=== PATIENT | female | born 1995 | race Caucasian/White ===

== ENCOUNTER 2018-06-06 22:17 | Emergency (ER) | payer OTHER ==
--- NOTE | 2018-06-06 22:33 | EDPHYS ---
Physician Documentation [facility] Name: Livia Bonilla Age: 22 yrs Sex: Female : 1995 Arrival Date: 06/06/2018 Time: 22:18 Bed 7 Private MD: ED Physician Gee Rider HPI: 06/06 23:00 This 22 yrs old Female presents to ER via Ambulatory with complaints of Sore pm1 Throat. 23:00 The patient presents with sore throat. The patient describes throat pain as constant, pm1 dry. Onset: The symptoms/episode began/occurred 1 week(s) ago. Severity of symptoms: in the emergency department the symptoms are actually worse. Modifying factors: The symptoms are alleviated by nothing, the symptoms are aggravated by nothing, Patient's oral intake status: good. Associated signs and symptoms: Pertinent positives: cough, sinus congestion and post nasal drainage, Pertinent negatives fever. The patient has not experienced similar symptoms in the past. The patient has not recently seen a physician, and does not have an established primary care provider. 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 - Social history:: Smoking status: Patient uses tobacco products, smokes one-half pack cigarettes per day. - Ebola Screening: : Patient denies exposure to infectious person Patient denies travel to an Ebola-affected area in the 21 days before illness onset. ROS: 23:00 Constitutional: Negative for fever, chills, and weight loss, Eyes: Negative for injury, pm1 pain, redness, and discharge. 23:00 Neck: Negative for injury, pain, and swelling, Cardiovascular: Negative for chest pain, palpitations, and edema, Respiratory: Negative for shortness of breath, cough, wheezing, and pleuritic chest pain, Abdomen/GI: Negative for abdominal pain, nausea, vomiting, diarrhea, and constipation, Back: Negative for injury and pain, MS/Extremity: Negative for injury and deformity, Skin: Negative for injury, rash, and discoloration, Neuro: Negative for headache, weakness, numbness, tingling, and seizure. 23:00 ENT: Positive for ear pain, sinus congestion, sinus pain, sore throat, Negative for drainage from ear(s). Exam: 23:00 Constitutional: This is a well developed, well nourished patient who is awake, alert, pm1 and in no acute distress. Head/Face: Normocephalic, atraumatic. Eyes: Pupils equal round and reactive to light, extra-ocular motions intact. Lids and lashes normal. Conjunctiva and sclera are non-icteric and not injected. Cornea within normal limits. Periorbital areas with no swelling, redness, or edema. 23:00 Neck: Trachea midline, no thyromegaly or masses palpated, and no cervical lymphadenopathy. Supple, full range of motion without nuchal rigidity, or vertebral point tenderness. No Meningismus. Chest/axilla: Normal chest wall appearance and motion. Nontender with no deformity. No lesions are appreciated. Cardiovascular: Regular rate and rhythm with a normal S1 and S2. No gallops, murmurs, or rubs. Normal PMI, no JVD. No pulse deficits. Respiratory: Lungs have equal breath sounds bilaterally, clear to auscultation and percussion. No rales, rhonchi or wheezes noted. No increased work of breathing, no retractions or nasal flaring. Abdomen/GI: Soft, non-tender, with normal bowel sounds. No distension or tympany. No guarding or rebound. No evidence of tenderness throughout. Back: No spinal tenderness. No costovertebral tenderness. Full range of motion. Skin: Warm, dry with normal turgor. Normal color with no rashes, no lesions, and no evidence of cellulitis. MS/ Extremity: Pulses equal, no cyanosis. Neurovascular intact. Full, normal range of motion. 23:00 Head/face: Sinus tenderness, that is moderate, is located over the right frontal sinus and left frontal sinus. 23:00 ENT: External ear(s): are unremarkable, Ear canal(s): are normal, TM's: are normal, Nose: is normal, Mouth: is normal, Posterior pharynx: no acute changes, Airway: normal, no evidence of obstruction, patent, Tonsils: are normal in appearance, no enlargement, no erythema, no exudate, no ulcerations, erythema, is not appreciated. Vital Signs: 22:30 BP 120 / 85; Pulse 89; Resp 16; Temp 99.2; Pulse Ox 99% on R/A; Weight 61.23 kg; Height aa1 5 ft. 0 in. (152.40 cm); Pain 6/10; 22:30 Body Mass Index 26.37 (61.23 kg, 152.40 cm) aa1 MDM: 22:25 Patient medically screened. pm1 22:30 Data reviewed: vital signs. pm1 22:31 Counseling: I had a detailed discussion with the patient and/or guardian regarding: the pm1 historical points, exam findings, and any diagnostic results supporting the discharge/admit diagnosis, the need for outpatient follow up, to return to the emergency department if symptoms worsen or persist or if there are any questions or concerns that arise at home. Administered Medications: No medications were administered Disposition: 06/07 04:17 Co-signature as Attending Physician, Gee Rider MD. rn Disposition: 06/06/18 22:32 Discharged to Home. Impression: Acute sinusitis. - Condition is Stable. - Discharge Instructions: Sinusitis, Adult. - Prescriptions for Zyrtec- D 5-120 mg Oral Tablet Sustained Release 12 hr - take 1 tablet by ORAL route every 12 hours As needed; 20 tablet. Zithromax 500 mg Oral Tablet - take 1 tablet by ORAL route once daily for 3 days; 3 tablet. - Medication Reconciliation Form, Thank You Letter, Prescription Opioid Use form. - Follow up: Emergency Department; When: As needed; Reason: Worsening of condition. Follow up: Private Physician; When: 2 - 3 days; Reason: Recheck today's complaints, Continuance of care, Re-evaluation by your physician. - Problem is new. - Symptoms have improved. Signatures: Keeley Naik RN RN aa1 Gee Rider MD MD rn Marinas, Patrick, DALIA BARREL ROLLER pm1 Corrections: (The following items were deleted from the chart) 06/06 23:05 22:32 06/06/2018 22:32 Discharged to Home. Impression: Acute sinusitis. Condition is aa1 Stable. Forms are Medication Reconciliation Form, Thank You Letter, Antibiotic Education, Prescription Opioid Use. Follow up: Emergency Department; When: As needed; Reason: Worsening of condition. Follow up: Private Physician; When: 2 - 3 days; Reason: Recheck today's complaints, Continuance of care, Re-evaluation by your physician. Problem is new. Symptoms have improved. pm1
--- NOTE | 2018-06-06 23:05 | ER ---
Nurse's Notes [facility] Name: Livia Bonilla Age: 22 yrs Sex: Female : 1995 Arrival Date: 06/06/2018 Time: 22:18 Bed 7 Private MD: Diagnosis: Acute sinusitis Presentation: 06/06 22:30 Presenting complaint: Patient states: sore throat with cough and sinus drainage x 1 aa1 week. Transition of care: patient was not received from another setting of care. Onset of symptoms was May 30, 2018. Risk Assessment: Do you want to hurt yourself or someone else? Patient reports no desire to harm self or others. Initial Sepsis Screen: Does the patient meet any 2 criteria? No. Patient's initial sepsis screen is negative. Does the patient have a suspected source of infection? No. Patient's initial sepsis screen is negative. Care prior to arrival: None. 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 - Social history:: Smoking status: Patient uses tobacco products, smokes one-half pack cigarettes per day. - Ebola Screening: : Patient denies exposure to infectious person Patient denies travel to an Ebola-affected area in the 21 days before illness onset. Screenin:40 Abuse screen: Denies threats or abuse. Denies injuries from another. Nutritional aa1 screening: No deficits noted. Tuberculosis screening: No symptoms or risk factors identified. Fall Risk None identified. Assessment: 22:40 General: Appears in no apparent distress. comfortable, Behavior is calm, cooperative, aa1 appropriate for age. Pain: Complains of pain in throat. Neuro: Level of Consciousness is awake, alert, obeys commands, Oriented to person, place, time, situation, Gait is steady, Speech is normal. Cardiovascular: Heart tones S1 S2 present Rhythm is regular. Respiratory: Reports cough that is Airway is patent Respiratory effort is even, unlabored, Respiratory pattern is regular, symmetrical, Breath sounds are clear bilaterally. GI: No signs and/or symptoms were reported involving the gastrointestinal system. : No signs and/or symptoms were reported regarding the genitourinary system. EENT: Throat is reddened Reports pain when swallowing. Derm: Skin is intact, is healthy with good turgor, Skin is pink, warm \T\ dry. Musculoskeletal: Circulation, motion, and sensation intact. Capillary refill < 3 seconds. 23:00 Reassessment: Patient appears in no apparent distress at this time. Patient is alert, aa1 oriented x 3, equal unlabored respirations, skin warm/dry/pink. Discussed d/c \T\ f/u instructions with pt; denies questions or concerns at this time. Vital Signs: 22:30 BP 120 / 85; Pulse 89; Resp 16; Temp 99.2; Pulse Ox 99% on R/A; Weight 61.23 kg; Height aa1 5 ft. 0 in. (152.40 cm); Pain 6/10; 22:30 Body Mass Index 26.37 (61.23 kg, 152.40 cm) aa1 ED Course: 22:18 Patient arrived in ED. es 22:23 Dieter Davidson NP is PHCP. pm1 22:23 Gee Rider MD is Attending Physician. pm1 22:30 Arm band placed on right wrist. Patient placed in an exam room, on a stretcher. aa1 22:40 Patient has correct armband on for positive identification. Bed in low position. Call aa1 light in reach. Pulse ox on. NIBP on. 22:40 No provider procedures requiring assistance completed. Patient did not have IV access aa1 during this emergency room visit. 23:02 Keeley Naik RN is Primary Nurse. aa1 23:03 Triage completed. aa1 Administered Medications: No medications were administered Outcome: 22:32 Discharge ordered by . pm1 23:00 Patient left the ED. aa1 23:00 Discharged to home ambulatory. aa1 23:00 Condition: good 23:00 Discharge instructions given to patient, Instructed on discharge instructions, follow up and referral plans. medication usage, Demonstrated understanding of instructions, follow-up care, medications, Prescriptions given X 2. Signatures: Keeley Naik RN RN aa1 Vania Jonas Dieter Davidson NP TEACHER [employer] pm1 Corrections: (The following items were deleted from the chart) 23:19 23:05 Patient left the ED. aa1 aa1
== END 2018-06-06 23:05 | disposition home or self-care (01) ==
LOC: ER 22:17
DX: J01.90 Acute sinusitis, unspecified (principal); F17.210 Nicotine dependence, cigarettes, uncomplicated; Z88.0 Allergy status to penicillin
CPT/HCPCS: 99283